=== PATIENT | male | born 2000 | race Caucasian/White ===

== ENCOUNTER 2023-03-27 13:25 | Outpatient (CLI) | payer BC | END 2023-03-27 13:26 | disposition home or self-care (01) | LOC: EDSEX 13:25 → CT 13:25 | PROVIDERS: ATTEND Plastic Surgery | DX: Z01.818 Encounter for other preprocedural examination (principal); F64.0 Transsexualism; R59.0 Localized enlarged lymph nodes | CPT/HCPCS: 70450; 70486; 76377 ==